=== PATIENT | female | born 1975 | race Two or more races ===

== ENCOUNTER 2017-01-20 05:46 | Emergency (ER) | payer SELFPAY ==
[~2017-01-20] VITALS: Ht 162.6 cm; Wt 54.4 kg
--- NOTE | 2017-01-20 05:46 | NUR ---
PT BIB [facility] 60 WITH A C/O ABD PAIN S/P MISCARRIAGE YESTERDAY. PT STATED THAT SHE IS G5, P 0. PT STATED THAT SHE HAD 2 ABORTIONS AND 3 SPONTANEOUS MISCARRIAGES. PT STATED THAT SHE WAS 8 WKS . PT STATED THAT SHE WOKE UP AND THERE WAS A LOT OF BLOOD IN THE BED. PT CALLED HER PMD WHO TOLD HER TO GO TO THE ER. PT WAS TRIAGED IN ROOM #21. RESP EVEN AND UNLABORED. PT IS GUARDING HER STOMACH AND MOANING. 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
[2017-01-20] MEDS ORDERED: IV NS 0.9% 1,000 ML BAG IV ONE (06:00)
[2017-01-20] MEDS ORDERED: IV SET PRIMARY 1 EA INFUS.SET MC ONE (06:02)
[2017-01-20] MEDS ORDERED: IV NS 0.9% 1,000 ML ONE (06:02)
--- NOTE | 2017-01-20 06:12 | NUR ---
DR. PEDERSEN IS AT THE BEDSIDE EVALUATING THE PT.
[2017-01-20] MEDS ORDERED: HYDROCODONE/APAP 5/325MG 1 EACH TABLET ONE (06:21)
[2017-01-20 06:29] LABS: CALCIUM, SERUM 8.1 mg/dL (8.5-10.1); CREATININE 0.6 mg/dL (0.6-1.3); POTASSIUM 3.8 mmol/L (3.5-5.1)
[2017-01-20] MEDS ORDERED: HYDROCODONE/APAP 5/325MG 1 EACH TABLET PO ONE (06:30)
[2017-01-20 06:32] LABS: APPEARANCE,URINE CLOUDY (CLEAR); BILIRUBIN,URINE NEGATIVE (NEGATIVE); BLOOD, URINE 3+ Ery/uL (NEGATIVE); COLOR,URINE RED (YELLOW); KETONES,URINE TRACE (NEGATIVE); LEUKOCYTE ESTERASE ,URINE TRACE (NEGATIVE); NITRITE, URINE POSITIVE (NEGATIVE); PROTEIN,URINE 2+ mg/dl (NEGATIVE); UGLUCOSE NEGATIVE (NEGATIVE)
[2017-01-20 06:32] LABS: BASOPHILS % (AUTO) 0.5 % (0.0-2.0); EOSINOPHILS # (AUTO) 0.2 /CMM (0.0-0.7); EOSINOPHILS % (AUTO) 3.2 % (0.0-6.0); HEMATOCRIT 37 % (33-45); HEMOGLOBIN 12.3 g/dL (11.5-14.8); LYMPHOCYTES # (AUTO) 2.5 /CMM (0.8-4.8); LYMPHOCYTES % (AUTO) 37.9 % (20.0-44.0); MEAN CORPUSCULAR HEMOGLOBIN 30 PG (26.0-33.0); MEAN CORPUSCULAR HGB CONC 34 g/dl (31.0-36.0); MEAN CORPUSCULAR VOLUME 90 fL (82-100); MONOCYTES # (AUTO) 0.4 /CMM (0.1-1.30); MONOCYTES % (AUTO) 5.8 % (2.0-12.0); NEUTROPHILS # (AUTO) 3.5 /CMM (1.8-8.9); NEUTROPHILS % (AUTO) 52.6 % (43.0-81.0); PLATELET COUNT (AUTO) 267 /CMM (150-450); RDW COEFFICIENT OF VARIATION 13.2 (11.5-15.0); RED BLOOD CELL COUNT(AUTO) 4.07 MIL/uL (4.0-5.2); WHITE BLOOD COUNT (AUTO) 6.6 K/uL (4.3-11.0)
[2017-01-20 06:33] LABS: INR 0.96 (0.87-1.13); PROTHROMBIN TIME 10.2 SECS (9.5-12.7)
[2017-01-20 06:40] LABS: ADD URINE CULTURE YES; BACTERIA,URINE Many /HPF (None Seen); RBC,URINE TOO NUMEROUS TO COUN /HPF (0-2)
--- NOTE | 2017-01-20 07:07 | NUR ---
PT STATED THAT SHE IS PAIN FREE AT THIS TIME. PT'S VSS.
--- NOTE | 2017-01-20 08:10 | NUR ---
SAMPLER PICKUP AT BEDSIDE
--- NOTE | 2017-01-20 08:30 | NUR ---
AT FOR PELVIC EXAM.
--- NOTE | 2017-01-20 09:12 | NUR ---
IV removed. Catheter intact and site benign. Pressure and 4x4 applied to site. No bleeding noted.Patient discharged to home in stable condition. Written and verbal after care instructions given. Patient verbalizes understanding of instruction.
== END 2017-01-20 09:15 | disposition home or self-care (01) ==
LOC: ER 05:53
DX: O03.9 Complete or unspecified spontaneous abortion without complication (principal)
CPT/HCPCS: 36415; 76856; 80048; 81001; 84702; 85025; 85730; 87086; 96360; 99285; A4606; J7030; Z7610; 81000-TC

== ENCOUNTER 2017-07-05 14:00 | Emergency (ER) | payer OTHER ==
[~2017-07-05] VITALS: Ht 167.6 cm; Wt 59.0 kg
--- NOTE | 2017-07-05 14:05 | NUR ---
Pt bb family to ER, for vaginal bleeding for the last 2 hrs. Pt sts she is 13 wks . A3, LMP march 29, 2017. Pt is also complaining of lower abd cramping. Pt assisted to OB room, ambulatory in a steady gait. VSS, nad rr even and unlabored. skin is warm and non diaphoretic. Pending ER MD evaluation
--- NOTE | 2017-07-05 14:23 | NUR ---
Vaginal exam done by Dr. mas assisted by me.
[2017-07-05 14:36] LABS: BASOPHILS % (AUTO) 0.3 % (0.0-2.0); EOSINOPHILS # (AUTO) 0.1 /CMM (0.0-0.7); EOSINOPHILS % (AUTO) 0.9 % (0.0-6.0); HEMATOCRIT 36 % (33-45); HEMOGLOBIN 12.4 g/dL (11.5-14.8); LYMPHOCYTES # (AUTO) 2.1 /CMM (0.8-4.8); LYMPHOCYTES % (AUTO) 23.6 % (20.0-44.0); MEAN CORPUSCULAR HEMOGLOBIN 31 PG (26.0-33.0); MEAN CORPUSCULAR HGB CONC 35 g/dl (31.0-36.0); MEAN CORPUSCULAR VOLUME 89 fL (82-100); MONOCYTES # (AUTO) 0.4 /CMM (0.1-1.30); MONOCYTES % (AUTO) 4.4 % (2.0-12.0); NEUTROPHILS # (AUTO) 6.3 /CMM (1.8-8.9); NEUTROPHILS % (AUTO) 70.8 % (43.0-81.0); PLATELET COUNT (AUTO) 285 /CMM (150-450); RDW COEFFICIENT OF VARIATION 12.9 (11.5-15.0); RED BLOOD CELL COUNT(AUTO) 4.03 MIL/uL (4.0-5.2); WHITE BLOOD COUNT (AUTO) 8.9 K/uL (4.3-11.0)
[2017-07-05 14:52] LABS: CALCIUM, SERUM 8.9 mg/dL (8.5-10.1); CREATININE 0.5 mg/dL (0.6-1.3); POTASSIUM 3.8 mmol/L (3.5-5.1)
[2017-07-05 14:53] LABS: APPEARANCE,URINE Clear (CLEAR); BILIRUBIN,URINE Negative (NEGATIVE); BLOOD, URINE Large Ery/uL (NEGATIVE); COLOR,URINE Light yellow (YELLOW); KETONES,URINE Negative (NEGATIVE); LEUKOCYTE ESTERASE ,URINE Negative (NEGATIVE); NITRITE, URINE Negative (NEGATIVE); PROTEIN,URINE Negative (NEGATIVE); UGLUCOSE Negative (NEGATIVE); UROBILINOGEN,URINE 0.2 EU/dL (0.2)
[2017-07-05 15:10] LABS: BACTERIA,URINE Rare /HPF (None Seen); SQUAMOUS EPITHELIAL CELL,UR Few /HPF (None Seen); WBC,URINE 0-2 /HPF (0-3)
--- NOTE | 2017-07-05 16:53 | NUR ---
Patient discharged to home in stable condition. Written and verbal after care instructions given. Patient verbalizes understanding of instruction.
[2017-07-05 16:57] VITALS: BP 127/80
== END 2017-07-05 16:57 | disposition home or self-care (01) ==
LOC: ER 14:08
DX: O20.0 Threatened abortion (principal)
CPT/HCPCS: 36415; 76856; 80048; 81001; 84702; 85025; 99285; A4606; A6402; Z7610; 81000-TC